=== PATIENT | female | born 1985 | race American Indian/Alaskan Native ===

== ENCOUNTER 2017-02-14 04:25 | Emergency (ER) | payer OTHER ==
[2017-02-14 04:31] VITALS: TEMP 97.1; O2SAT 100; BMI 30.9
--- NOTE | 2017-02-14 04:50 | ED PDOC ---
Arrival/HPI - General Chief Complaint: GI Problem Time Seen by Provider: 02/14/17 04:28 Historian: Patient - History of Present Illness Narrative History of Present Illness (Text): 02/14/17 04:44 Beatriz Chang is a 31 year old female who presents to the Emergency department brought in by EMS complaining of epigastric discomfort. Patient states she woke up tonight with sharp epigastric discomfort and had 1 episode of vomiting. Patient notes she had pop-tarts and [place] food for dinner the evening prior. Patient denies any fever, chills, chest pain, shortness of breath , diarrhea, urinary symptoms, back pain, neck pain, headache, dizziness, or any other complaints. Time/Duration: Other (tonight) Symptom Onset: Gradual Symptom Course: Unchanged Activities at Onset: Rest, Light, Sleeping Context: Home Past Medical History - Provider Review Nursing Documentation Reviewed: Yes - Psychiatric Hx Substance Use: No - Anesthesia Hx Anesthesia: No Family/Social History - Physician Review Nursing Documentation Reviewed: Yes Family/Social History: Unknown Family HX Smoking Status: Never Smoked Hx Alcohol Use: No Hx Substance Use: No Allergies/Home Meds Allergies/Adverse Reactions: Allergies No Known Allergies Allergy (Verified 02/14/17 04:37) Review of Systems - Physician Review All systems were reviewed & negative as marked: Yes - Review of Systems Constitutional: Normal. absent: Fevers Eyes: Normal ENT: Normal Respiratory: Normal. absent: SOB, Cough Cardiovascular: Normal. absent: Chest Pain Gastrointestinal: Abdominal Pain (+epigastric pain), Vomiting. absent: Diarrhea Genitourinary Female: Normal. absent: Dysuria, Frequency, Hematuria, Urine Output Changes Musculoskeletal: Normal. absent: Back Pain, Neck Pain Skin: Normal. absent: Rash Neurological: Normal. absent: Headache, Dizziness Endocrine: Normal Hemo/Lymphatic: Normal Psychiatric: Normal Physical Exam Vital Signs Reviewed: Yes Vital Signs Temp Pulse Resp BP Pulse Ox 02/14/17 04:30 97.1 F L 82 17 132/76 100 Temperature: Afebrile Blood Pressure: Normal Pulse: Regular Respiratory Rate: Normal Appearance: Positive for: Well-Appearing, Non-Toxic, Comfortable Pain Distress: None Mental Status: Positive for: Alert and Oriented X 3 - Systems Exam Head: Present: Atraumatic, Normocephalic Pupils: Present: PERRL Extroacular Muscles: Present: EOMI Conjunctiva: Present: Normal Mouth: Present: Moist Mucous Membranes Neck: Present: Normal Range of Motion Respiratory/Chest: Present: Clear to Auscultation, Good Air Exchange. No: Respiratory Distress, Accessory Muscle Use Cardiovascular: Present: Regular Rate and Rhythm, Normal S1, S2. No: Murmurs Abdomen: Present: Normal Bowel Sounds. No: Tenderness, Distention, Peritoneal Signs Back: Present: Normal Inspection Upper Extremity: Present: Normal Inspection. No: Cyanosis, Edema Lower Extremity: Present: Normal Inspection. No: Edema Neurological: Present: GCS=15, CN II-XII Intact, Speech Normal Skin: Present: Warm, Dry, Normal Color. No: Rashes Psychiatric: Present: Alert, Oriented x 3, Normal Insight, Normal Concentration Medical Decision Making ED Course and Treatment: 02/14/17 04:44 Impression: 31 year old female complaining of sharp epigastric discomfort with 1 episode of vomiting tonight. Plan: -- EKG -- Labs, cardiac enzymes, lipase -- IV fluids -- Pepcid -- Reassess and disposition Progress Notes: Reviewed EKG, NSR at [address]-segment elevations or depressions, no T-wave inversions, normal intervals. 02/14/17 06:59 Pt. asymptomatic.States she feels 100% better.Full d/c instructions given - Lab Interpretations Lab Results: 02/14/17 05:01 02/14/17 06:00 Lab Results 02/14/17 06:00: Urine HCG, Qual Negative 02/14/17 06:00: Sodium 140, Potassium 3.5 L, Chloride 107, Carbon Dioxide 23, Anion Gap 14, BUN 8, Creatinine 0.7, Est GFR ( Amer) > 60, Est GFR (Non- Af Amer) > 60, Random Glucose 111 H, Calcium 8.9, Total Bilirubin 0.3, AST 47 H , ALT 28, Alkaline Phosphatase 68, Lactate Dehydrogenase 449, Total Creatine Kinase 61, Troponin I < 0.01, Total Protein 6.8, Albumin 3.5, Globulin 3.3, Albumin/Globulin Ratio 1.1, Lipase 23 02/14/17 05:55: PT 10.6, INR 0.98, APTT 27.9 02/14/17 05:01: WBC 7.9, RBC 4.17, Hgb 12.8, Hct 37.5, MCV 89.9, MCH 30.7, MCHC 34.1, RDW 12.6, Plt Count 341, MPV 11.8 H I have reviewed the lab results: Yes - RAD Interpretation Narrative RAD Interpretations (Text): 02/14/17 06:51 CXR- No acute process Radiology Orders: 02/14/17 06:38 CHEST PORTABLE [RAD] Stat Snuff Box Finisher: ED Physician - EKG Interpretation Interpreted by ED Physician: Yes Type: 12 lead EKG - Medication Orders Current Medication Orders: Sodium Chloride (Sodium Chloride 0.9%) 1,000 mls @ 100 mls/hr IV .Q10H LAURA Last Admin: 02/14/17 05:55 Dose: 100 mls/hr Discontinued Medications Famotidine (Pepcid) 20 mg IVP STAT STA Stop: 02/14/17 05:03 Last Admin: 02/14/17 05:55 Dose: 20 mg Ondansetron HCl (Zofran Inj) 4 mg IVP ONCE ONE Stop: 02/14/17 06:23 Last Admin: 02/14/17 06:35 Dose: 4 mg - Scribe Statement The provider has reviewed the documentation as recorded by the Tianna Solorzano Provider Scribe Attestation: All medical record entries made by the Tianna were at my direction and personally dictated by me. I have reviewed the chart and agree that the record accurately reflects my personal performance of the history, physical exam, medical decision making, and the department course for this patient. I have also personally directed, reviewed, and agree with the discharge instructions and disposition. Disposition/Present on Arrival - Present on Arrival Any Indicators Present on Arrival: No History of DVT/PE: No History of Uncontrolled Diabetes: No Urinary Catheter: No History of Decub. Ulcer: No History Surgical Site Infection Following: None - Disposition Have Diagnosis and Disposition been Completed?: Yes Diagnosis: Gastritis Disposition: HOME/ ROUTINE Disposition Time: 06:57 Patient Plan: Discharge Condition: GOOD Discharge Instructions (ExitCare): Gastritis (ED) Additional Instructions: Drink small amounts of liquids at a time/Adrian diet as tolerated/meds as prescribed/follow up with your doctor this week Prescriptions: Ondansetron [Zofran Odt] 4 mg PO Q6 PRN #12 odt PRN Reason: Nausea/Vomiting Referrals: Silvestre Obrien MD [Primary Care Provider] - Follow up with primary Forms: [employer] (Serbian)
[2017-02-14] MEDS ORDERED: Sodium Chloride 0.9% 1,000 ML IV SCH (05:15)
[2017-02-14 05:26] LABS: HEMATOCRIT 37.5 % (36.0-48.0); MEAN CELL VOLUME 89.9 fl (80.0-105.0); MEAN CORPUSCULAR HEMOGLOBIN 30.7 pg (25.0-35.0); MEAN CORPUSCULAR HGB CONC 34.1 g/dl (31.0-37.0); MEAN PLATELET VOLUME 11.8 fl (7.0-11.0); RED CELL DISTRIBUTION WIDTH 12.6 % (11.5-14.5); WHITE BLOOD COUNT 7.9 10^3/ul (4.5-11.0)
[2017-02-14 06:18] LABS: INR 0.98 (0.93-1.08); PARTIAL THROMBOPLASTIN TIME 27.9 Seconds (23.7-30.8)
[2017-02-14 06:34] LABS: ALB/GLOB RATIO 1.1 (1.1-1.8); ALKALINE PHOSPHATASE 68 U/L (38-133); ALT/SGPT 28 U/L (7-56); AST/SGOT 47 U/L (15-39); BILIRUBIN,TOTAL 0.3 mg/dL (0.2-1.3); BLOOD UREA NITROGEN 8 mg/dL (7-21); CALCIUM 8.9 mg/dL (8.4-10.5); CARBON DIOXIDE 23 mmol/L (21-33); CHLORIDE 107 mmol/L (98-107); GFR AFRICAN-AMERICAN > 60; GLUCOSE,RANDOM 111 mg/dL (70-110); LIPASE 23 U/L (23-300); POTASSIUM 3.5 mmol/L (3.6-5.0); SODIUM 140 mmol/L (132-148); TOTAL PROTEIN 6.8 g/dL (5.8-8.3)
[2017-02-14 06:55] LABS: TROPONIN I < 0.01 ng/mL
--- NOTE | 2017-02-14 07:02 | RAD ---
HISTORY: epigastric pain COMPARISON: No prior. FINDINGS: LUNGS: No active pulmonary disease. PLEURA: No significant pleural effusion identified, no pneumothorax apparent. CARDIOVASCULAR: Normal. OSSEOUS STRUCTURES: No significant abnormalities. VISUALIZED UPPER ABDOMEN: Normal. OTHER FINDINGS: None. IMPRESSION: No active disease.
[2017-02-14 07:15] VITALS: BP 109/80; PULSE 78; RESP 18
--- NOTE | 2017-02-14 17:11 | CARD ---
APPROVED REPORT EKG Measurement Heart [id number] <Conclusion> Normal sinus rhythm Normal ECG
== END 2017-02-14 07:28 | disposition home or self-care (01) ==
LOC: ED 04:25
DX: K29.70 Gastritis, unspecified, without bleeding (principal)
CPT/HCPCS: 71010; 80053; 82550; 83615; 83690; 84484; 84703; 85027; 85610; 85730; 93005; 96374; 96375; 99284; J2405; J7040